=== PATIENT | female | born 2000 | race Caucasian/White ===

== ENCOUNTER 2021-09-20 06:22 | Emergency (ER) | payer OTHER ==
[~2021-09-20] VITALS: Ht 165.1 cm; Wt 51.8 kg
--- NOTE | 2021-09-20 06:32 | NUR ---
PT TAKEN TO BED 3
--- NOTE | 2021-09-20 06:47 | NUR ---
PATIENT CAME FOR NAUSEAS AND HYPOGASTRYC PAIN ACTIVE IN ALL QUADRANTE SOUND MATIDES AND TYMPANIC IN THE RIGHT UPER QUADRANT //DiCaprio RN
[2021-09-20] MEDS ORDERED: IBUPROFEN 600 MG TAB PO ONE (07:00)
[2021-09-20 07:21] VITALS: BP 125/80
--- NOTE | 2021-09-20 07:26 | NUR ---
ULTRASOUND AT BEDSIDE.
--- NOTE | 2021-09-20 07:44 | NUR ---
URINE COLLEDTED AND IN THE LAB.
[2021-09-20 07:49] LABS: APPEARANCE,URINE CLEAR (CLEAR); BILIRUBIN,URINE NEGATIVE (NEGATIVE); BLOOD, URINE 1+ (NEGATIVE); COLOR,URINE YELLOW (YELLOW); LEUKOCYTE ESTERASE ,URINE 1+ (NEGATIVE); NITRITE, URINE NEGATIVE (NEGATIVE); UGLUCOSE NEGATIVE (NEGATIVE)
[2021-09-20 08:05] VITALS: BP 126/76
[2021-09-20 08:06] LABS: RBC,URINE 0-5 /HPF (0-5); WBC,URINE 0-5 /HPF (0-5)
--- NOTE | 2021-09-20 08:55 | NUR ---
Patient discharged with v/s stable. Written and verbal after care instructions given and explained. Patient verbalized understanding. Ambulatory with steady gait. All questions addressed prior to discharge. Advised to follow up with PMD.
== END 2021-09-20 08:55 | disposition home or self-care (01) ==
LOC: MED 06:22
DX: O21.8 Other vomiting complicating pregnancy (principal); O26.891 Other specified pregnancy related conditions, first trimester; R10.30 Lower abdominal pain, unspecified; Z3A.01 Less than 8 weeks gestation of pregnancy
CPT/HCPCS: 36415; 76817; 81001; 81025; 84702; 86592; 86702; 87086; 99284; Q0092